=== PATIENT | male | born 1995 | race Caucasian/White ===

== ENCOUNTER 2017-09-11 00:33 | Emergency (ER) | payer BC ==
[~2017-09-11] VITALS: Ht 170.2 cm; Wt 87.7 kg
[~2017-09-11 00:33] MED LIST: ADDSR/15 PO; BUPR100T4 PO
[2017-09-11 00:43] VITALS: TEMP 37.1; Ht 170.2 cm; Wt 87.7 kg
[2017-09-11] MEDS ORDERED: IBUPROFEN 600 MG TAB PO STA (01:02)
[2017-09-11] MEDS ORDERED: AMPH20CA3 PO (01:05)
[2017-09-11] MEDS ORDERED: SERT-234 PO (01:06)
[2017-09-11 01:43] VITALS: BP 112/58; PULSE 70; O2SAT 98
--- NOTE | 2017-09-11 03:20 | EMERGENCY ROOM VISIT NOTE ---
ED Visit Note First contact with patient: 00:58 CHIEF COMPLAINT: Shoulder pain HISTORY OF PRESENT ILLNESS: This 22 yo patient presents to the emergency department complaining of pain in the left shoulder after throwing the trash away at work. Patient states is a work-related injury who works at [employer]. There is limitation of motion of the arm because of the pain. The pain is moderate, constant and increases with motion of the hand and arm. The patient states the pain is throbbing and 5/10. The patient has taken nothing for relief of the pain. No previous significant previous shoulder disease or injury. No numbness or tingling. no neck no back pain. No chest pain or shortness of breath. No abdominal pain or nausea/vomiting. No cough. REVIEW OF SYSTEMS: A 6 system review of systems was performed with positives and pertinent negatives in the HPI. ALLERGIES: None MEDICATIONS: Reviewed PMH: ADHD SOCIAL HISTORY: No drug use PHYSICAL EXAM: Vital Signs: Reviewed nurse's notes, vital signs stable. GENERAL : Pleasant male, in no acute distress, but appears to be in pain, well-developed , well-nourished. MUSCULOSKELETAL: There is no deformity in the contour of the left shoulder and there are no susie deformities noted. There is no sulcus sign. There is tenderness over the supraspinatus. The patient's range of motion is intact but painful. Supraspinatus strength 4/5. There is no clavicle tenderness. No tenderness of the humerus, elbow, wrist, or hand. Circuit Court Clerk strength 5/5. Radial pulse 2+. NECK: no tenderness to palpation over the cervical spine. HEART: Regular rate and rhythm without murmurs gallops or rubs. LUNGS: Clear to auscultation bilaterally without wheezes, rales or rhonchi. No accessory muscle use. No retractions. NEURO: The patient is alert and oriented to person, place, and time. Normal sensation to light and sharp touch. Capillary refill less than 2 seconds. EMERGENCY DEPARTMENT COURSE: I examined the patient. An X-ray of the left shoulder was reviewed by myself and my attending and shows no fracture. Patient was advised to stretch the area and take anti-inflammatories. He was advised to follow-up orthopedics symptoms persist or here in the ER sooner for severe pain, numbness, tingling, weakness, worsening signs or symptoms or as needed. 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 He was discharged home in stable condition. DIAGNOSIS: #1 Left shoulder sprain #2 work-related injury DISCHARGE INSTRUCTIONS & TREATMENT: As below Problem List Medical Problems: (1) Attention deficit hyperactivity disorder Status: Chronic Current/Historical Medications Scheduled Amphetamine-Dextroamphetamine 20MG (Adderall Xr 20MG), 20 MG PO BID Sertraline (Zoloft), 100 MG PO DAILY Allergies Coded Allergies: No Known Allergies (Verified , 09/11/17) Vital Signs Date Time Temp Pulse Resp B/P (MAP) Pulse Ox O2 Delivery O2 Flow Rate FiO2 09/11/17 01:43 70 18 112/58 98 Room Air 09/11/17 00:43 37.1 77 20 146/80 95 Room Air Medications Administered Medications (Trade) Dose Ordered Sig/Zoe Route Start Time Stop Time Status Last Admin Dose Admin Ibuprofen (Motrin Tab) 600 mg NOW STAT PO 09/11/17 01:02 09/11/17 01:03 DC 09/11/17 01:19 600 MG Departure Information Impression Primary Impression: Work related injury Additional Impression: Left shoulder strain Dispostion Home / Self-Care Condition GOOD Referrals Vadim Vigil MD Forms HOME CARE DOCUMENTATION FORM, IMPORTANT VISIT INFORMATION Patient Instructions [facility], ED Sprain Shoulder Additional Instructions Ibuprofen(Motrin, Advil) may be used for fever or pain. Use 600mg every six hours as needed. Take with food. Avoid using more than 2400mg in a 24 hour period. Do not use 2400mg per day for more than three consecutive days without physician direction. Prolonged inappropriate use can lead to stomach upset or ulcers. This medication can be taken if you need to drive, work, or perform activities which may be dangerous when taking narcotic pain medication. (AND/OR) Acetaminophen(Tylenol) may be used for fever or pain. Use 1000mg every six hours as needed. Avoid using more than 3000mg in a 24 hour period. This medication can be taken if you need to drive, work, or perform activities which may be dangerous when taking narcotic pain medication. Ice compresses for 20 minutes at a time four times daily for 2-3 days. Rest and elevate your injury. Continue current medications. Return to the ER immediately for any numbness, tingling, severe pain, extreme swelling in the extremity or as needed. Call Orthopedics in 3-5 days if symptoms persist to arrange follow up for your injury. Make sure this is approved through your work as this is a work-related injury. Problem Qualifiers
--- NOTE | 2017-09-11 06:45 | DIAGNOSTIC IMAGING REPORT ---
L SHOULDER MIN 2 VIEWS ROUTINE CLINICAL HISTORY: 22 years-old Male presenting with pain. TECHNIQUE: Internal rotation, external rotation, and Grashey views of the left shoulder were obtained. COMPARISON: 10/13/2010. FINDINGS: Glenohumeral and acromioclavicular joints congruent. No subluxation of the humeral head. No acute fracture or malalignment. No advanced degenerative change. Regional soft tissues normal. Visualized portion of the left hemithorax normal. IMPRESSION: No acute osseous injury of the left shoulder. Electronically signed by: Vadim Crane M.D. 09/11/2017 6:43 AM Dictated Date/Time: 09/11/2017 6:43 AM
== END 2017-09-11 01:44 | disposition home or self-care (01) ==
LOC: C.EDB 00:34 → C.EDA 01:44
DX: S46.912A Strain of unspecified muscle, fascia and tendon at shoulder and upper arm level, left arm, initial encounter (principal); X58.XXXA Exposure to other specified factors, initial encounter; Y92.89 Other specified places as the place of occurrence of the external cause; Y99.0 Civilian activity done for income or pay; F90.9 Attention-deficit hyperactivity disorder, unspecified type; Z79.899 Other long term (current) drug therapy

== ENCOUNTER 2021-12-04 21:33 | Inpatient (IN) ==
--- NOTE | 2021-12-04 21:59 | Emergency Department Note ---
Impression & Plan Suicidal ideation ADMIT ED Provider Note HPI: The patient is a 26-year-old male with history of depression, presents the emergency department with a chief complaint of suicidal ideations. Patient states over the past several months he has had multiple issues in his life that have been "stacking up" causing him to come to a "breaking point". Patient states that he was having thoughts of wanting to harm himself, he denies a specific plan to me. Patient states he has previously had a suicide attempt, states he was threatening to use a "weapon" against himself but was talked out of it over a year ago. Patient states he does have a history of psychiatric admission in the past when he was 16 years old for depression. On arrival here to the ED the patient is calm and cooperative, he is in no acute distress on my initial evaluation, denies any recent alcohol or drug use. States he is having thoughts of wanting to harm himself and feels he does need to be admitted. ROS: -Psychiatric: Depression, suicidal thoughts *10 point review systems was conducted and is otherwise negative unless stated above *Outpatient medications and allergy history reviewed PE: General: Alert, NAD HEENT: Normocephalic, atraumatic Eyes: Extraocular eye movement is intact, no scleral erythema Pulmonary: Clear to auscultation bilaterally, no wheezing Cardio: Regular rate and rhythm GI: Abdomen is soft, nontender : No suprapubic tenderness MSK: No evidence of trauma or malformation of the extremities, no edema Skin: No evidence of rash Neuro: Alert, no focal deficits Psychiatric: Cooperative Medical Decision Making: Patient presented to the emergency department with suicidal ideation, states that this is been ongoing for the past several days, states that he has been having increasing depression over the past several months. On arrival here to the ED he is calm and cooperative, he is here voluntarily, denies any active plan to harm himself but states he does feel that he needs to be admitted for further care. Lab work is generally unremarkable, patient does have a slight leukocytosis, unclear origin, denies any recent infectious signs or symptoms. COVID-19 testing is negative. Patient is afebrile. At this time I feel that he is medically clear for psychiatric evaluation. Patient was evaluated by case management, determined appropriate for 201 admission. Patient was accepted for admission at 3 S. for psychiatric care, I did sign the 201. Patient was admitted in stable condition. Diagnosis: 1. Depression 2. Suicidal thoughts Disposition: Admission to psychiatry under 201 Umesh Gordillo DO Emergency Medicine Past Med/Surg History Medical History (Updated 12/05/21 @ 00:28 by Umesh Gordillo DO) Patient denies significant medical history Social History (Updated 08/10/18 @ 20:46 by Chacho Doran PA-C) Smoking Status: Current some day smoker Tobacco Type: Cigarettes Preferred Language: Greenlandic Communication Ability: Effective Visual Impairment: No Limitations Hearing Ability: Normal Feels Safe at Home: Yes Allergies Allergies Allergy/AdvReac Type Severity Reaction Status Date / Time No Known Allergies Allergy Verified 03/09/19 23:37 Home Meds Home Medications Medication Instructions Recorded Confirmed Wellbutrin SR 150 mg PO DAILY 12/04/21 12/04/21 Results & Data (ED) Vital Signs Vital Signs - 24 hr 12/04/21 21:33 12/04/21 23:12 12/05/21 01:00 Temperature 36.5 C Temperature Source Temporal Artery Scan Pulse Rate 86 Pulse Rate [Radial] 75 Pulse Rhythm [Radial] Regular Pulse Strength [Radial] Normal Respiratory Rate 16 14 16 Respiratory Effort / Characteristics Non-Labored Respiratory Depth Normal Respiratory Pattern Regular Blood Pressure 142/97 H Blood Pressure Mean 112 Pulse Oximetry 98 Oxygen Delivery Method Room Air Room Air Sepsis Recent Fever Within 48 Hours No Sepsis New/Unexplained Change in Mental Status N/A Sepsis Action Taken by Nursing No Action Required Laboratory Data Result diagrams: 12/04/21 21:50 12/04/21 21:50 Lab Results 12/04/21 12/04/21 12/04/21 Range/Units 21:50 21:50 21:50 WBC 13.50 H (4.8-10.8) K/uL RBC 5.57 (4.7-6.1) M/uL Hgb 17.0 (14.0-18.0) g/dL Hct 47.9 (42-52) % MCV 86.0 (80-100) fL MCH 30.5 (25-34) pg MCHC 35.5 (32-36) g/dL RDW Std Deviation 39.1 (36.4-46.3) fL RDW Coeff of Mayank 12.3 (11.5-14.5) % Plt Count 280 (130-400) K/uL MPV 10.7 H (7.4-10.4) fL Immature Gran % (Auto) 0.4 % Neut % (Auto) 65.7 % Lymph % (Auto) 25.8 % [place] % (Auto) 6.0 % Eos % (Auto) 1.6 % Baso % (Auto) 0.5 % Neut # (Auto) 8.88 H (1.4-6.5) K/uL Lymph # (Auto) 3.48 H (1.2-3.4) K/uL [place] # (Auto) 0.81 H (0.11-0.59) K/uL Eos # (Auto) 0.21 (0-0.5) K/uL Baso # (Auto) 0.07 (0-0.2) K/uL Immature Gran # (Auto) 0.05 H (0.00-0.02) K/uL Sodium 139 (136-145) mmol/L Potassium 3.5 (3.5-5.1) mmol/L Chloride 105 (98-107) mmol/L Carbon Dioxide 26 (21-32) mmol/L Anion Gap 8 (3-11) BUN 15 (6-23) mg/dl Creatinine 1.12 (0.6-1.4) mg/dl Est Cr Clr Drug Dosing 114.6 ml/min Est GFR ( Amer) 105.3 ml/min Est GFR (Non-Af Amer) 90.8 ml/min BUN/Creatinine Ratio 13.4 (10-20) Glucose 94 (70-99(Fasting)) mg/dl Calcium 9.9 (8.5-10.1) mg/dl Total Bilirubin 0.5 (0.2-1.0) mg/dl AST 27 (13-39) U/L ALT 67 H (7-52) U/L Alkaline Phosphatase 67 (34-104) U/L Total Protein 7.7 (6.0-8.3) gm/dl Albumin 4.9 (3.4-5.0) gm/dl Globulin 2.8 (2.5-4.0) gm/dl Albumin/Globulin Ratio 1.8 (0.9-2) TSH 3.680 (0.300-4.500) uIu/ml Urine Color Urine Appearance (Clear) Urine pH (4.5-7.5) Ur Specific [place] (1.000-1.030) Urine Protein (Negative) Urine Glucose (UA) (Negative) Urine Ketones (Negative) Urine Blood (Negative) Urine Nitrite (Negative) Urine Bilirubin (Negative) Urine Urobilinogen (Negative) Ur Leukocyte Esterase (Negative) Salicylates (3.0-30) mg/dl Urine Opiates Screen (Neg) Ur Methadone, Qual (Neg) Acetaminophen (10-30) ug/ml Urine Barbiturates (Neg) Ur Phencyclidine (PCP) (Neg) U Amphetamin/Meth Scrn (Neg) MDMA (Ecstasy) Screen (Neg) U Benzodiazepines Scrn (Neg) Ur Cocaine Metabolite (Neg) U Marijuana (THC) Screen (Neg) Ethyl Alcohol mg/dL (<10.0) mg/dl SARS-CoV-2, RNA, NAAT (NEGATIVE) 12/04/21 12/04/21 12/04/21 Range/Units 21:50 21:50 21:50 WBC (4.8-10.8) K/uL RBC (4.7-6.1) M/uL Hgb (14.0-18.0) g/dL Hct (42-52) % MCV (80-100) fL MCH (25-34) pg MCHC (32-36) g/dL RDW Std Deviation (36.4-46.3) fL RDW Coeff of Mayank (11.5-14.5) % Plt Count (130-400) K/uL MPV (7.4-10.4) fL Immature Gran % (Auto) % Neut % (Auto) % Lymph % (Auto) % [place] % (Auto) % Eos % (Auto) % Baso % (Auto) % Neut # (Auto) (1.4-6.5) K/uL Lymph # (Auto) (1.2-3.4) K/uL [place] # (Auto) (0.11-0.59) K/uL Eos # (Auto) (0-0.5) K/uL Baso # (Auto) (0-0.2) K/uL Immature Gran # (Auto) (0.00-0.02) K/uL Sodium (136-145) mmol/L Potassium (3.5-5.1) mmol/L Chloride (98-107) mmol/L Carbon Dioxide (21-32) mmol/L Anion Gap (3-11) BUN (6-23) mg/dl Creatinine (0.6-1.4) mg/dl Est Cr Clr Drug Dosing ml/min Est GFR ( Amer) ml/min Est GFR (Non-Af Amer) ml/min BUN/Creatinine Ratio (10-20) Glucose (70-99(Fasting)) mg/dl Calcium (8.5-10.1) mg/dl Total Bilirubin (0.2-1.0) mg/dl AST (13-39) U/L ALT (7-52) U/L Alkaline Phosphatase (34-104) U/L Total Protein (6.0-8.3) gm/dl Albumin (3.4-5.0) gm/dl Globulin (2.5-4.0) gm/dl Albumin/Globulin Ratio (0.9-2) TSH (0.300-4.500) uIu/ml Urine Color Urine Appearance (Clear) Urine pH (4.5-7.5) Ur Specific [place] (1.000-1.030) Urine Protein (Negative) Urine Glucose (UA) (Negative) Urine Ketones (Negative) Urine Blood (Negative) Urine Nitrite (Negative) Urine Bilirubin (Negative) Urine Urobilinogen (Negative) Ur Leukocyte Esterase (Negative) Salicylates < 3.0 L (3.0-30) mg/dl Urine Opiates Screen (Neg) Ur Methadone, Qual (Neg) Acetaminophen < 3 L (10-30) ug/ml Urine Barbiturates (Neg) Ur Phencyclidine (PCP) (Neg) U Amphetamin/Meth Scrn (Neg) MDMA (Ecstasy) Screen (Neg) U Benzodiazepines Scrn (Neg) Ur Cocaine Metabolite (Neg) U Marijuana (THC) Screen (Neg) Ethyl Alcohol mg/dL < 10.0 (<10.0) mg/dl SARS-CoV-2, RNA, NAAT NEGATIVE (NEGATIVE) 12/04/21 12/04/21 Range/Units 21:57 21:57 WBC (4.8-10.8) K/uL RBC (4.7-6.1) M/uL Hgb (14.0-18.0) g/dL Hct (42-52) % MCV (80-100) fL MCH (25-34) pg MCHC (32-36) g/dL RDW Std Deviation (36.4-46.3) fL RDW Coeff of Myaank (11.5-14.5) % Plt Count (130-400) K/uL MPV (7.4-10.4) fL Immature Gran % (Auto) % Neut % (Auto) % Lymph % (Auto) % [place] % (Auto) % Eos % (Auto) % Baso % (Auto) % Neut # (Auto) (1.4-6.5) K/uL Lymph # (Auto) (1.2-3.4) K/uL [place] # (Auto) (0.11-0.59) K/uL Eos # (Auto) (0-0.5) K/uL Baso # (Auto) (0-0.2) K/uL Immature Gran # (Auto) (0.00-0.02) K/uL Sodium (136-145) mmol/L Potassium (3.5-5.1) mmol/L Chloride (98-107) mmol/L Carbon Dioxide (21-32) mmol/L Anion Gap (3-11) BUN (6-23) mg/dl Creatinine (0.6-1.4) mg/dl Est Cr Clr Drug Dosing ml/min Est GFR ( Amer) ml/min Est GFR (Non-Af Amer) ml/min BUN/Creatinine Ratio (10-20) Glucose (70-99(Fasting)) mg/dl Calcium (8.5-10.1) mg/dl Total Bilirubin (0.2-1.0) mg/dl AST (13-39) U/L ALT (7-52) U/L Alkaline Phosphatase (34-104) U/L Total Protein (6.0-8.3) gm/dl Albumin (3.4-5.0) gm/dl Globulin (2.5-4.0) gm/dl Albumin/Globulin Ratio (0.9-2) TSH (0.300-4.500) uIu/ml Urine Color Yellow Urine Appearance Clear (Clear) Urine pH 6.5 (4.5-7.5) Ur Specific [place] 1.023 (1.000-1.030) Urine Protein Negative (Negative) Urine Glucose (UA) Negative (Negative) Urine Ketones Negative (Negative) Urine Blood Negative (Negative) Urine Nitrite Negative (Negative) Urine Bilirubin Negative (Negative) Urine Urobilinogen Negative (Negative) Ur Leukocyte Esterase Negative (Negative) Salicylates (3.0-30) mg/dl Urine Opiates Screen Neg (Neg) Ur Methadone, Qual Neg (Neg) Acetaminophen (10-30) ug/ml Urine Barbiturates Neg (Neg) Ur Phencyclidine (PCP) Neg (Neg) U Amphetamin/Meth Scrn Neg (Neg) MDMA (Ecstasy) Screen Neg (Neg) U Benzodiazepines Scrn Neg (Neg) Ur Cocaine Metabolite Neg (Neg) U Marijuana (THC) Screen Neg (Neg) Ethyl Alcohol mg/dL (<10.0) mg/dl SARS-CoV-2, RNA, NAAT (NEGATIVE) Discharge Plan Visit Data Chief Complaint: Mental Health Evaluation Stated Complaint: FEELING SUICIDAL THE PAST FEW DAYS ED Provider: Umesh Gordillo Discharge Problem: Suicidal ideation Forms Stand Alone Forms: My [facility], Suicide Prevention Resources Prescriptions Prescriptions: No Action Wellbutrin SR 150 mg PO DAILY RF: 0 Referrals Referrals: Arnulfo Adair MD [Primary Care Provider] -
[2021-12-04 22:09] LABS: Appearance Urine Clear (Clear); Bilirubin Urine Negative (Negative); Blood Urine Negative (Negative); Color Urine Yellow; Glucose Urine UA Negative (Negative); Ketones Urine Negative (Negative); Leukocyte Esterase Urine Negative (Negative); Nitrite Urine Negative (Negative); Protein Urine Negative (Negative); Specific Gravity Urine 1.023 (1.000-1.030); Urobilinogen Urine Negative (Negative); pH Urine 6.5 (4.5-7.5)
[2021-12-04 22:10] LABS: Basophils # (auto) 0.07 K/uL (0-0.2); Basophils % (auto) 0.5 %; Eosinophils # (auto) 0.21 K/uL (0-0.5); Eosinophils % (auto) 1.6 %; Hematocrit (blood only) 47.9 % (42-52); Immature Granulocytes # (auto) 0.05 K/uL (0.00-0.02); Immature Granulocytes % (auto) 0.4 %; Lymphocytes # (auto) 3.48 K/uL (1.2-3.4); Lymphocytes % (auto) 25.8 %; Mean Corpuscular Hemoglobin 30.5 pg (25-34); Mean Corpuscular Hgb Conc 35.5 g/dL (32-36); Mean Platelet Volume 10.7 fL (7.4-10.4); Monocytes # (auto) 0.81 K/uL (0.11-0.59); Neutrophils # (auto) 8.88 K/uL (1.4-6.5); Neutrophils % (auto) 65.7 %; Platelet Count 280 K/uL (130-400); RDW Coefficient of Variation 12.3 % (11.5-14.5); RDW Standard Deviation 39.1 fL (36.4-46.3); Red Blood Count 5.57 M/uL (4.7-6.1)
[2021-12-04 22:29] LABS: Albumin Globulin Ratio 1.8 (0.9-2); Albumin Level 4.9 gm/dl (3.4-5.0); BUN Creatinine Ratio 13.4 (10-20); Bilirubin,Total 0.5 mg/dl (0.2-1.0); Calcium 9.9 mg/dl (8.5-10.1); Creatinine Clr Calc Pharmacy 114.6 ml/min; Est GFR (African American) 105.3 ml/min; Est GFR (Non-African American) 90.8 ml/min; Globulin 2.8 gm/dl (2.5-4.0); Potassium 3.5 mmol/L (3.5-5.1); Total Protein 7.7 gm/dl (6.0-8.3)
[2021-12-04 22:30] LABS: Amphetamines+Metham, Urine Neg (Neg); Barbiturates, Urine Neg (Neg); Benzodiazepine, Urine Neg (Neg); Cocaine, Urine Neg (Neg); MDMA (Ecstacy), Urine Neg (Neg); Methadone, Urine Neg (Neg); Opiate, Urine Neg (Neg); Phencyclidine, Urine Neg (Neg)
[2021-12-04 22:37] LABS: Acetaminophen < 3 ug/ml (10-30); Salicylate < 3.0 mg/dl (3.0-30)
[2021-12-05] MEDS ORDERED: MAGNESIUM HYDROXIDE SUSP 30 ML UDC PO PRN (01:18)
[2021-12-05] MEDS ORDERED: hydrOXYzine HCl 25 MG TAB PO PRN ×2 (01:18)
[2021-12-05] MEDS ORDERED: BISMUTH SUBSALICYLATE LIQD 236 ML PO PRN (01:18)
[2021-12-05] MEDS ORDERED: SODIUM CHLORIDE 0.65% NA SOLN 45 ML (OCEAN) PRN (01:18)
[2021-12-05] MEDS ORDERED: ALUMINUM/MAGNESIUM SUSP 30 ML UDC PO PRN (01:18)
[2021-12-05] MEDS ORDERED: ACETAMINOPHEN 325 MG TAB PO PRN (01:18)
[2021-12-05] MEDS ORDERED: buPROPion SR 150 MG TABCR PO SCH (09:00)
--- NOTE | 2021-12-05 10:09 | History & Physical ---
Date of Service December 05, 2021 Impression / Recommendations Impression The patient is a 26 year old with a history of depression who was admitted for worsening depression, anxiety and persistent and intensifying SI. Diagnostically consistent with MDD, recurrent with anxious distress and social anxiety and alcohol use disorder. The patient is deemed unstable and requires psychiatric hospitalization for diagnostic clarification, safety and stabilization, medication management and development of further coping skills. Discussed medication treatment options in detail. He would like to transition to Wellbutrin XL and then consider augmentation with fluoxetine. Discussed risks, benefits and alternatives including but not limited to cardiac effects, sexual side effects, GI issues, GOMEZ, counseled on black box warning of potential for emergence of or increased SI and need to let staff know should this occur or should they feel unsafe. Also discussed importance of seeking emergency care following discharge if this side effect occurs in the future. The patient's audit score, use history suggests problematic substance use. Brief intervention was offered and accepted. Intervention was greater than 5 minutes in length and included assessing readiness to quit, advice on how to reduce or abstain and to set a specific goal for this hospitalization. sand worker will also assist in anticipating barriers to reducing or abstaining from substance use and in problem-solving for solutions to those problems while arranging for referral to appropriate treatment. The patient is in contemplative stage with regards to transtheoretical model of change. The patient is advised to decrease consumption due to depressant effects and risk of interaction with prescription medications. The patient agreed to reduce his use and will be provided with recovery materials to continue to educa te self on how to cope with their condition without using substances. Not interested in MAT at this point. (1) Major depressive disorder, recurrent episode, severe with anxious distress: (2) Social anxiety disorder: (3) Alcohol use disorder: (4) Suicidal ideation: 12/05/21: The patient was admitted to the [facility] ([facility] health unit) on q15 min checks (behavioral with suicide precautions) for safety. The patient will participate in group, recreational, and milieu therapies and will be offered additional individual and family sessions as clinically appropriate. -hydroxyzine 25mg qhs -Switch to Wellbutrin XL 150mg qd and if tolerated will then titrate to 300mg qd -declines nicotine replacement at this point -may consider further augmentation with fluoxetine for anxiety and depression if needed Inventory Assets Strengths: supportive family, employed, help seeking Needs: outpatient providers, medication adjustment, additional coping skills Risk Factors Assessment Acute risk is high given worsening depression and SI, history of near attempt, access to guns. Chronic risk is low to moderate given history of depression and suicidal ideation with plan and intent but also with many protective factors. Most significant modifiable risk factors are removing guns from the home which counseling was provided about he agrees to have friend remove them and treating major depression. Male: Yes : Yes Do You Have Access To A Gun?: Yes (willing to have friend remove them from the home ) Health Problems: No Mental Health Diagnoses: Yes Substance Use Disorders: Yes Previous Attempt: No Family History of Suicide: Yes Previous Psychiatric Hospitalization: Yes Hopelessness: Yes Smoker: Yes Protective Factors Assessment Employed: Yes ([employer]) Stable Relationships: Yes Supportive Family: Yes Good Rapport with Provider: Yes Psychiatric History Identifying Data DUANE CARTER is a 26-year-old man who currently lives in [place] with his parents, has a history of depression, and was admitted on 12/05/21 01:18 on a 201 voluntary commitment for worsening depression and SI. Chief Complaint "Everything was building up and I lost my final support system". History of Present Illness Duane presents for psychiatric hospitalization for worsening depression and intensifying SI in the context of multiple psychosocial stressors including his father having health issues, recent breakup with girlfriend who he identified as his main support, isolating from family and work has been more intense. Since 12/02/21, his depression has further escalated with persistent SI to the point that he felt unable to remain safe outside of a hospital setting. The SI started while he was intoxicated and then even after "I sobered out" they never left. He had thoughts of crashing his car on Sunday and Sunday but a friend recommended he come to the hospital and he decided "I should give it one more chance". Previously he had a near suicide attempt about one year ago with intent to use a gun to shoot himself but had a friend on the phone who talked him out of it. Currently he has guns in his home though states he lost the rachel to the cabinet where they are secured. Notes that he has a lot of grief that still impacts him every day since May 2020 when he had a romantic breakup after a 2.5 year on and off relationship and subsequent loss of his apartment and "everything I had worked for, all my independence". He endorses depression symptoms which occur episodic with re-emergence in early October 2021. Current symptoms of depression including intense sadness, decrease motivation, low energy, decreased sleep, decreased appetite as well as anxiety and SI. He also endorses lifelong history of social anxiety. Has panic attacks a few times per year. He is currently taking Wellbutrin SR 150mg qAM prescribed by his PCP. He's been "on and off" it for the last 1.5 years. He notes he feels better and stops it but then depression often restarts. Has been on Wellbutrin again since October and it "does help but to an extent". He wishes it was helping more with irritability symptoms. Psychiatric ROS notable for: denial of joaquina, denial of psychosis, hx self-harm via cutting in childhood none in last 10 years, denial of OCD, denial of eating disorder, denial of PTSD. Past Psychiatric History Current Psychiatric Diagnosis: Depression Outpatient Services: teletherapy with Barbara [facility], first session last week Previous Psych Admissions: [facility] at age 16 for depression Do You Have Access To A Gun?: Yes (willing to have friend remove them from the home ) History of Previous Suicide Attempt: No (SI with rehearsal behaviors) Describe Attempts in the Past: had plan to shoot self 1 year ago and "was talked out of it" Past Medication Trials: zoloft ("I hated it, if you miss a dose you pay the ultimate garza", was on for 3-4 months), intuniv (made very sleepy) Past Head Trauma/Neuro History History of Concussion/Seizure: No Allergies Allergy/AdvReac Type Severity Reaction Status Date / Time No Known Allergies Allergy Verified 03/09/19 23:37 Home Medications Medication Instructions Recorded Confirmed Type Wellbutrin SR 150 mg PO DAILY 12/04/21 12/04/21 History Family History Family History of: Depression (paternal side of the family ), Alcoholism/Drug Abuse (PGF alcohol use disorder ) and Suicide Completion (maternal great uncle) Alcohol History Hx of Alcohol Use Over the Past 12 Months: Yes AUDIT Total Score: 11 With worsening depression drinking has increased with drinks daily, about 3-4 times per day, hard liquor or beers (on average 4 mixed drinks or 4 beers per day); no hx DUI; no hx blackouts, no hx withdrawal. Likes that alcohol "calms me down", nothing that he doesn't like about it. He would like to cut down on his use "so it doesn't become a problem". Smoking Use Have You Smoked or Used Tobacco Products in the Last 30 Days: Yes tobacco type: cigarettes Smoking Status: Light tobacco smoker Smoking packs per day: 0.25 Substance History Hx of Prescription Med Misuse Over the Past 12 Months: No Hx of Over the Counter Med Misuse Over the Past 12 Months: No Hx of Inhalent Misuse Over the Past 12 Months: No Hx of Organic Substance Use Over the Past 12 Months: No Hx of Illegal Substances/Street Drug Use Over Past 12 Months: No Problems as a Result of Past Substance Use: None Identified cannabis use once every few months socially Personal History Living Arrangements: Home (with his parents) Childhood: Grew up in [facility] Highest Grade Completed: High School Graduate 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; 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 ) Marital Status: Single Number Of Children: 0 Beliefs That Will Affect Care: None Current Legal Problems: No Hx Legal Problems: No Hx Traumatic Life Events: No Patient History Medical History Patient denies significant medical history Social History Smoking Status: Light tobacco smoker Tobacco Type: Cigarettes Preferred Language: Mozambican Communication Ability: Effective Visual Impairment: No Limitations Hearing Ability: Normal Sleever Required: No Beliefs That Will Affect Care: None Feels Safe at Home: Yes Assistive Devices: Contacts Review of Systems Review of Systems: All systems reviewed & are unremarkable except as noted in HPI & below Physical Exam Psychiatric: Orientation: alert and oriented x 3 Apperance: appropriately dressed and appropriately groomed Eye Contact: good eye contact Motor Behavior: no abnormal motor movements Speech: normal rate/rhythm/volume of speech Affect: + depressed affect and + anxious affect Mood: + depressed mood and + anxious mood Thought Process: goal directed thought process Thought Content: reality based without delusions Suicidal Thoughts: denies suicidal plan and denies suicidal intent; + reports suicidal thoughts Homicidal Thoughts: denies homicidal thoughts Hallucinations: no auditory hallucinations and no visual hallucinations Cognition: recent memory grossly intact, remote memory grossly intact, attention grossly intact and language grossly intact Estimated Intelligence: consistent with education level Insight: + fair insight Judgement: + fair judgement Vital Signs (Past 24 Hours): Last Vital Signs Temp 36.2 C L 12/05/21 06:39 Pulse 71 12/05/21 06:42 Resp 16 12/05/21 06:39 BP 117/77 12/05/21 06:42 Pulse Ox 98 12/04/21 21:33 Exam Statement: A physical exam was performed in the ED by Dr. Gordillo for the purposes of medical clearance. I accept that physical as correct and adequate for the purposes of the inpatient physical exam. Results & Data ([facility]) Laboratory Results Laboratory Results - last 24 hr 12/04/21 12/04/21 12/04/21 21:50 21:50 21:50 WBC 13.50 H RBC 5.57 Hgb 17.0 Hct 47.9 MCV 86.0 MCH 30.5 MCHC 35.5 RDW Std Deviation 39.1 RDW Coeff of Mayank 12.3 Plt Count 280 MPV 10.7 H Immature Gran % (Auto) 0.4 Neut % (Auto) 65.7 Lymph % (Auto) 25.8 [place] % (Auto) 6.0 Eos % (Auto) 1.6 Baso % (Auto) 0.5 Neut # (Auto) 8.88 H Lymph # (Auto) 3.48 H [place] # (Auto) 0.81 H Eos # (Auto) 0.21 Baso # (Auto) 0.07 Immature Gran # (Auto) 0.05 H Sodium 139 Potassium 3.5 Chloride 105 Carbon Dioxide 26 Anion Gap 8 BUN 15 Creatinine 1.12 Est Cr Clr Drug Dosing 114.6 Est GFR ( Amer) 105.3 Est GFR (Non-Af Amer) 90.8 BUN/Creatinine Ratio 13.4 Glucose 94 Calcium 9.9 Total Bilirubin 0.5 AST 27 ALT 67 H Alkaline Phosphatase 67 Total Protein 7.7 Albumin 4.9 Globulin 2.8 Albumin/Globulin Ratio 1.8 TSH 3.680 Urine Color Urine Appearance Urine pH Ur Specific [place] Urine Protein Urine Glucose (UA) Urine Ketones Urine Blood Urine Nitrite Urine Bilirubin Urine Urobilinogen Ur Leukocyte Esterase Salicylates Urine Opiates Screen Ur Methadone, Qual Acetaminophen Urine Barbiturates Ur Phencyclidine (PCP) U Amphetamin/Meth Scrn MDMA (Ecstasy) Screen U Benzodiazepines Scrn Ur Cocaine Metabolite U Marijuana (THC) Screen Ethyl Alcohol mg/dL SARS-CoV-2, RNA, NAAT 12/04/21 12/04/21 12/04/21 21:50 21:50 21:50 WBC RBC Hgb Hct MCV MCH MCHC RDW Std Deviation RDW Coeff of Mayank Plt Count MPV Immature Gran % (Auto) Neut % (Auto) Lymph % (Auto) [place] % (Auto) Eos % (Auto) Baso % (Auto) Neut # (Auto) Lymph # (Auto) [place] # (Auto) Eos # (Auto) Baso # (Auto) Immature Gran # (Auto) Sodium Potassium Chloride Carbon Dioxide Anion Gap BUN Creatinine Est Cr Clr Drug Dosing Est GFR ( Amer) Est GFR (Non-Af Amer) BUN/Creatinine Ratio Glucose Calcium Total Bilirubin AST ALT Alkaline Phosphatase Total Protein Albumin Globulin Albumin/Globulin Ratio TSH Urine Color Urine Appearance Urine pH Ur Specific [place] Urine Protein Urine Glucose (UA) Urine Ketones Urine Blood Urine Nitrite Urine Bilirubin Urine Urobilinogen Ur Leukocyte Esterase Salicylates < 3.0 L Urine Opiates Screen Ur Methadone, Qual Acetaminophen < 3 L Urine Barbiturates Ur Phencyclidine (PCP) U Amphetamin/Meth Scrn MDMA (Ecstasy) Screen U Benzodiazepines Scrn Ur Cocaine Metabolite U Marijuana (THC) Screen Ethyl Alcohol mg/dL < 10.0 SARS-CoV-2, RNA, NAAT NEGATIVE 12/04/21 12/04/21 21:57 21:57 WBC RBC Hgb Hct MCV MCH MCHC RDW Std Deviation RDW Coeff of Mayank Plt Count MPV Immature Gran % (Auto) Neut % (Auto) Lymph % (Auto) [place] % (Auto) Eos % (Auto) Baso % (Auto) Neut # (Auto) Lymph # (Auto) [place] # (Auto) Eos # (Auto) Baso # (Auto) Immature Gran # (Auto) Sodium Potassium Chloride Carbon Dioxide Anion Gap BUN Creatinine Est Cr Clr Drug Dosing Est GFR ( Amer) Est GFR (Non-Af Amer) BUN/Creatinine Ratio Glucose Calcium Total Bilirubin AST ALT Alkaline Phosphatase Total Protein Albumin Globulin Albumin/Globulin Ratio TSH Urine Color Yellow Urine Appearance Clear Urine pH 6.5 Ur Specific [place] 1.023 Urine Protein Negative Urine Glucose (UA) Negative Urine Ketones Negative Urine Blood Negative Urine Nitrite Negative Urine Bilirubin Negative Urine Urobilinogen Negative Ur Leukocyte Esterase Negative Salicylates Urine Opiates Screen Neg Ur Methadone, Qual Neg Acetaminophen Urine Barbiturates Neg Ur Phencyclidine (PCP) Neg U Amphetamin/Meth Scrn Neg MDMA (Ecstasy) Screen Neg U Benzodiazepines Scrn Neg Ur Cocaine Metabolite Neg U Marijuana (THC) Screen Neg Ethyl Alcohol mg/dL SARS-CoV-2, RNA, NAAT Current Inpatient Medications Current Inpatient Medications: Current Inpatient Medications Acetaminophen (Acetaminophen 325 Mg Tab) 650 mg PO Q4H PRN PRN Reason: Headache or Minor Fever Stop: 01/04/22 01:17 Al Hydrox/Mg Hydrox/Simethicone (Aluminum/Magnesium Susp 30 Ml Udc) 30 ml PO Q4H PRN PRN Reason: GI Upset Stop: 01/04/22 01:17 Bismuth Subsalicylate (Bismuth Subsalicylate Liqd 236 Ml) 15 ml PO PRN PRN PRN Reason: Loose Stool Stop: 01/04/22 01:17 Bupropion HCl (Bupropion Sr 150 Mg Tabcr) 150 mg PO BID NIKKI Stop: 01/04/22 08:59 Last Admin: 12/05/21 09:35 Dose: 150 mg Documented by: Hydroxyzine HCl (Hydroxyzine Hcl 25 Mg Tab) 50 mg PO HSZ PRN PRN Reason: Insomnia Stop: 01/04/22 01:17 Hydroxyzine HCl (Hydroxyzine Hcl 25 Mg Tab) 25 mg PO Q4H PRN PRN Reason: Anxiety Stop: 01/04/22 01:17 Magnesium Hydroxide (Magnesium Hydroxide Susp 30 Ml Udc) 30 ml PO DAILY PRN PRN Reason: Constipation Stop: 01/04/22 01:17 Sodium Chloride (Sodium Chloride 0.65% Na Soln 45 Ml ([place])) 1 - 2 sprays NA PRN PRN PRN Reason: Nasal Dryness/Congestion Stop: 01/04/22 01:17
[2021-12-05] MEDS: hydrOXYzine HCl 25 MG TAB PO SCH (22:51)
[2021-12-06] MEDS: buPROPion XL 300 MG TABCR PO SCH (08:37)
--- NOTE | 2021-12-06 08:59 | Psychiatric Progress Note ---
Date of Service December 06, 2021 Impression / Recommendations Impression The patient is a 26 year old with a history of depression who was admitted for worsening depression, anxiety and persistent and intensifying SI. Diagnostically consistent with MDD, recurrent with anxious distress and social anxiety and alcohol use disorder. The patient is deemed unstable and requires psychiatric hospitalization for diagnostic clarification, safety and stabilization, medication management and development of further coping skills. 12/06/21: Tolerating increased Wellbutrin XL 300mg well, showing some mood improvements, no SI today. (1) Major depressive disorder, recurrent episode, severe with anxious distress: (2) Social anxiety disorder: (3) Alcohol use disorder: (4) Suicidal ideation: 12/06/21: Continue Wellbutrin XL 300mg qd. Family meeting scheduled. 12/05/21: The patient was admitted to the [facility] ([facility] health unit) on q15 min checks (behavioral with suicide precautions) for safety. The patient will participate in group, recreational, and milieu therapies and will be offered additional individual and family sessions as clinically appropriate. -hydroxyzine 25mg qhs -Increase Wellbutrin XL 150mg qd to 300mg qd -declines nicotine replacement at this point -may consider further augmentation with fluoxetine for anxiety and depression if needed Inventory Assets Strengths: supportive family, employed, help seeking Needs: outpatient providers, medication adjustment, additional coping skills Risk Factors Assessment Male: Yes : Yes Do You Have Access To A Gun?: Yes (Secured in home, agreeable to have them removed) Health Problems: No Mental Health Diagnoses: Yes Substance Use Disorders: Yes Previous Attempt: No Family History of Suicide: Yes Previous Psychiatric Hospitalization: Yes Hopelessness: Yes Smoker: Yes Protective Factors Assessment Employed: Yes ([employer] - [employer]) Stable Relationships: Yes Supportive Family: Yes Good Rapport with Provider: Yes Interval History Identifying Information CHAUNCEY CARTER is a 26-year-old man who currently lives in [place] with his parents, has a history of depression, and was admitted on 12/05/21 01:18 on a 201 voluntary commitment for worsening depression and SI. Chief Complaint "It's definitely helping". Review of Systems Sleep Information Total Hours of Sleep: 6.5 Meal Information Percent Meal Consumed - Breakfast: 75 Percent Meal Consumed - Lunch: 100 Percent Meal Consumed - Dinner: 100 Subjective Subjective Patient was seen & assessed and interval progress reviewed with treatment team nursing and social work. Attended groups. Tolerating increase in WEllbutrin without any side effects, he feels he's already noticing some improvements in his mood symptoms "it's definitely helping". Denies SI. Family meeting scheduled. Physical Exam Psychiatric Orientation: alert and oriented x 3 Apperance: appropriately dressed and appropriately groomed Eye Contact: good eye contact Motor Behavior: no abnormal motor movements Speech: normal rate/rhythm/volume of speech Affect: + depressed affect Mood: + depressed mood Thought Process: goal directed thought process Thought Content: reality based without delusions Suicidal Thoughts: denies suicidal thoughts, denies suicidal plan and denies suicidal intent Homicidal Thoughts: denies homicidal thoughts Hallucinations: no auditory hallucinations and no visual hallucinations Cognition: recent memory grossly intact, remote memory grossly intact, attention grossly intact and language grossly intact Estimated Intelligence: consistent with education level Insight: + fair insight Judgement: + fair judgement Vital Signs (Past 24 Hours) Last Vital Signs Temp 36.5 C 12/06/21 06:00 Pulse 67 12/06/21 06:00 Resp 16 12/06/21 06:00 BP 116/78 12/06/21 06:00 Pulse Ox 98 12/04/21 21:33 Results & Data ([facility]) Current Inpatient Medications Current Inpatient Medications: Current Inpatient Medications Acetaminophen (Acetaminophen 325 Mg Tab) 650 mg PO Q4H PRN PRN Reason: Headache or Minor Fever Stop: 01/04/22 01:17 Al Hydrox/Mg Hydrox/Simethicone (Aluminum/Magnesium Susp 30 Ml Udc) 30 ml PO Q4H PRN PRN Reason: GI Upset Stop: 01/04/22 01:17 Bismuth Subsalicylate (Bismuth Subsalicylate Liqd 236 Ml) 15 ml PO PRN PRN PRN Reason: Loose Stool Stop: 01/04/22 01:17 Bupropion HCl (Bupropion Xl 300 Mg Tabcr) 300 mg PO QAM NIKKI Stop: 01/05/22 08:59 Last Admin: 12/06/21 08:37 Dose: 300 mg Documented by: Hydroxyzine HCl (Hydroxyzine Hcl 25 Mg Tab) 50 mg PO HSZ PRN PRN Reason: Insomnia Stop: 01/04/22 01:17 Hydroxyzine HCl (Hydroxyzine Hcl 25 Mg Tab) 25 mg PO Q4H PRN PRN Reason: Anxiety Stop: 01/04/22 01:17 Hydroxyzine HCl (Hydroxyzine Hcl 25 Mg Tab) 25 mg PO HS NIKKI Stop: 01/04/22 21:59 Last Admin: 12/05/21 22:51 Dose: 25 mg Documented by: Magnesium Hydroxide (Magnesium Hydroxide Susp 30 Ml Udc) 30 ml PO DAILY PRN PRN Reason: Constipation Stop: 01/04/22 01:17 Sodium Chloride (Sodium Chloride 0.65% Na Soln 45 Ml ([place])) 1 - 2 sprays NA PRN PRN PRN Reason: Nasal Dryness/Congestion Stop: 01/04/22 01:17 Mental Health & Subst Abuse Tx Therapist Name of Therapist: [facility] (online) - Rosita Edwards [employer] Maintenance Manager Name of 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 Adair
[2021-12-06] MEDS ORDERED: buPROPion XL 150 MG TABCR PO SCH (09:00)
[2021-12-06] MEDS: hydrOXYzine HCl 25 MG TAB PO SCH (21:16)
--- NOTE | 2021-12-07 09:03 | Psychiatric Progress Note ---
Date of Service December 07, 2021 Impression / Recommendations Impression The patient is a 26 year old with a history of depression who was admitted for worsening depression, anxiety and persistent and intensifying SI. Diagnostically consistent with MDD, recurrent with anxious distress and social anxiety and alcohol use disorder. The patient is deemed unstable and requires psychiatric hospitalization for diagnostic clarification, safety and stabilization, medication management and development of further coping skills. 12/07/21: Gradually improving, brightening of affect, tolerating Wellbutrin titration but still with periods of hopelessness and doubts about his ability to remain safe outside of the hospital. (1) Major depressive disorder, recurrent episode, severe with anxious distress: (2) Social anxiety disorder: (3) Alcohol use disorder: (4) Suicidal ideation: 12/07/21: Continue with Wellbutrin. 12/06/21: Continue Wellbutrin XL 300mg qd. Family meeting scheduled. 12/05/21: The patient was admitted to the [facility] ([facility]) on q15 min checks (behavioral with suicide precautions) for safety. The patient will participate in group, recreational, and milieu therapies and will be offered additional individual and family sessions as clinically appropriate. -hydroxyzine 25mg qhs -Increase Wellbutrin XL 150mg qd to 300mg qd -declines nicotine replacement at this point -may consider further augmentation with fluoxetine for anxiety and depression if needed Inventory Assets Strengths: supportive family, employed, help seeking Needs: outpatient providers, medication adjustment, additional coping skills Risk Factors Assessment Male: Yes : Yes Do You Have Access To A Gun?: Yes (Secured in home, agreeable to have them removed) Health Problems: No Mental Health Diagnoses: Yes Substance Use Disorders: Yes Previous Attempt: No Family History of Suicide: Yes Previous Psychiatric Hospitalization: Yes Hopelessness: Yes Smoker: Yes Protective Factors Assessment Employed: Yes ([employer]) Stable Relationships: Yes Supportive Family: Yes Good Rapport with Provider: Yes Interval History Identifying Information CHAUNCEY CARTER is a 26-year-old man who currently lives in [place] with his parents, has a history of depression, and was admitted on 12/05/21 01:18 on a 201 voluntary commitment for worsening depression and SI. Chief Complaint "I had some thoughts of doubt today". Review of Systems Sleep Information Total Hours of Sleep: 8 Meal Information Percent Meal Consumed - Breakfast: 100 Percent Meal Consumed - Lunch: 100 Percent Meal Consumed - Dinner: 100 Subjective Subjective Patient was seen & assessed and interval progress reviewed with treatment team nursing and social work. Attended groups, discussing future-oriented plans. States his mood is improving here and denies SI though remains very worried about his safety outside of the hospital and notes he has been having "a lot of doubts" about if he'll be able to manage things on his own and some hopelessness that he'll get worse again due to the depression. Discussed ways to challenge these unhelpful thoughts. He likes the Wellbutrin and denies any side effects though did have some insomnia last night. has been taking vistaril and finds it helpful for sleep. Physical Exam Psychiatric Orientation: alert and oriented x 3 Apperance: appropriately dressed and appropriately groomed Eye Contact: good eye contact Motor Behavior: no abnormal motor movements Speech: normal rate/rhythm/volume of speech Affect: + depressed affect Mood: + depressed mood and + anxious mood Thought Process: goal directed thought process Thought Content: reality based without delusions Suicidal Thoughts: denies suicidal thoughts Homicidal Thoughts: denies homicidal thoughts Hallucinations: no auditory hallucinations and no visual hallucinations Cognition: recent memory grossly intact, remote memory grossly intact, attention grossly intact and language grossly intact Estimated Intelligence: consistent with education level Insight: + fair insight Judgement: + fair judgement Vital Signs (Past 24 Hours) Last Vital Signs Temp 36.4 C L 12/07/21 06:00 Pulse 105 H 12/07/21 06:28 Resp 16 12/07/21 06:00 BP 113/75 12/07/21 06:28 Pulse Ox 98 12/04/21 21:33 Results & Data ([facility]) Current Inpatient Medications Current Inpatient Medications: Current Inpatient Medications Acetaminophen (Acetaminophen 325 Mg Tab) 650 mg PO Q4H PRN PRN Reason: Headache or Minor Fever Stop: 01/04/22 01:17 Al Hydrox/Mg Hydrox/Simethicone (Aluminum/Magnesium Susp 30 Ml Udc) 30 ml PO Q4H PRN PRN Reason: GI Upset Stop: 01/04/22 01:17 Bismuth Subsalicylate (Bismuth Subsalicylate Liqd 236 Ml) 15 ml PO PRN PRN PRN Reason: Loose Stool Stop: 01/04/22 01:17 Bupropion HCl (Bupropion Xl 300 Mg Tabcr) 300 mg PO QAM NIKKI Stop: 01/05/22 08:59 Last Admin: 12/06/21 08:37 Dose: 300 mg Documented by: Hydroxyzine HCl (Hydroxyzine Hcl 25 Mg Tab) 50 mg PO HSZ PRN PRN Reason: Insomnia Stop: 01/04/22 01:17 Hydroxyzine HCl (Hydroxyzine Hcl 25 Mg Tab) 25 mg PO Q4H PRN PRN Reason: Anxiety Stop: 01/04/22 01:17 Hydroxyzine HCl (Hydroxyzine Hcl 25 Mg Tab) 25 mg PO HS NIKKI Stop: 01/04/22 21:59 Last Admin: 12/06/21 21:16 Dose: 25 mg Documented by: Magnesium Hydroxide (Magnesium Hydroxide Susp 30 Ml Udc) 30 ml PO DAILY PRN PRN Reason: Constipation Stop: 01/04/22 01:17 Sodium Chloride (Sodium Chloride 0.65% Na Soln 45 Ml (Saline)) 1 - 2 sprays NA PRN PRN PRN Reason: Nasal Dryness/Congestion Stop: 01/04/22 01:17 Mental Health & Subst Abuse Tx Therapist Name of Therapist: Jon Valladares - Jesús Rizvi Therapist's Date of Therapist Appointment: 12/14/21 Time of Therapist Appointment: 1:30 p.m. Therapy Appointment Comment: [address] [facility], [address] [facility], [place] Washer Blanket Name of Washer Blanket: None Post Discharge Appointments Primary Care Physician Name Of Family Doctor: Gal [facility] Date of Appointment with PCP: 12/14/21 Time of Appointment with PCP: 11:20 a.m. (Please arrive at 11:05 for check in) Provider Appointment Comment: [address] [facility] [place] [id number] Other #1: Name of Aftercare Appointment: [facility] (online) - Rosita Edwards Aftercare Appointment Comment: Follow up according to your preference Contact Information Discharge Discharge Address: [address] [place] [address] [id number]
[2021-12-07] MEDS: buPROPion XL 300 MG TABCR PO SCH (09:55)
[2021-12-07] MEDS: hydrOXYzine HCl 25 MG TAB PO SCH (21:18)
--- NOTE | 2021-12-08 08:55 | Psychiatric Progress Note ---
Date of Service December 08, 2021 Impression / Recommendations Impression The patient is a 26 year old with a history of depression who was admitted for worsening depression, anxiety and persistent and intensifying SI. Diagnostically consistent with MDD, recurrent with anxious distress and social anxiety and alcohol use disorder. The patient is deemed unstable and requires psychiatric hospitalization for diagnostic clarification, safety and stabilization, medication management and development of further coping skills. 12/08/21: Brightening of affect, no longer with SI, tolerating Wellbutrin titration well. Still with some insomnia, possibly due to Wellbutrin titration, discussed options and he would like to start trazodone. Reviewed side effects including but not limited to sedation and priapism. Family meeting to be held this afternoon. (1) Major depressive disorder, recurrent episode, severe with anxious distress: (2) Social anxiety disorder: (3) Alcohol use disorder: (4) Suicidal ideation: 12/08/21:Continue with Wellbutrin. Adding trazodone 50mg qhs for insomnia. 12/07/21: Continue with Wellbutrin. 12/06/21: Continue Wellbutrin XL 300mg qd. Family meeting scheduled. 12/05/21: The patient was admitted to the [facility] ([facility] mental health unit) on q15 min checks (behavioral with suicide precautions) for safety. The patient will participate in group, recreational, and milieu therapies and will be offered additional individual and family sessions as clinically appropriate. -hydroxyzine 25mg qhs -Increase Wellbutrin XL 150mg qd to 300mg qd -declines nicotine replacement at this point -may consider further augmentation with fluoxetine for anxiety and depression if needed Inventory Assets Strengths: supportive family, employed, help seeking Needs: outpatient providers, medication adjustment, additional coping skills Risk Factors Assessment Male: Yes : Yes Do You Have Access To A Gun?: Yes (Secured in home, agreeable to have them removed) Health Problems: No Mental Health Diagnoses: Yes Substance Use Disorders: Yes Previous Attempt: No Family History of Suicide: Yes Previous Psychiatric Hospitalization: Yes Hopelessness: Yes Smoker: Yes Protective Factors Assessment Employed: Yes ([employer]) Stable Relationships: Yes Supportive Family: Yes Good Rapport with Provider: Yes Interval History Identifying Information CHAUNCEY CARTER is a 26-year-old man who currently lives in [place] with his parents, has a history of depression, and was admitted on 12/05/21 01:18 on a 201 voluntary commitment for worsening depression and SI. Chief Complaint "The medication is helping a lot". Review of Systems Sleep Information Total Hours of Sleep: 6 Meal Information Percent Meal Consumed - Breakfast: 100 Percent Meal Consumed - Lunch: 75 Percent Meal Consumed - Dinner: 75 Subjective Subjective Patient was seen & assessed and interval progress reviewed with treatment team nursing and social work. Mood has been improving. Has a family meeting today. [place] paperwork completed for his inpatient admission. Continues to attend groups. Had some difficulty again with sleep onset insomnia. Discussed potential side effect from Wellbutrin increase versus change in sleep environment while in the hospital. He would like to continue WEllbutrin as he finds it very helpful for his mood. Interested in trazodone for sleep. Denies SI. Physical Exam Psychiatric Orientation: alert and oriented x 3 Apperance: appropriately dressed and appropriately groomed Eye Contact: good eye contact Motor Behavior: no abnormal motor movements Speech: normal rate/rhythm/volume of speech Affect: + constricted affect Mood: + depressed mood and + anxious mood Thought Process: goal directed thought process Thought Content: reality based without delusions Suicidal Thoughts: denies suicidal thoughts, denies suicidal plan and denies suicidal intent Homicidal Thoughts: denies homicidal thoughts Hallucinations: no auditory hallucinations and no visual hallucinations Cognition: recent memory grossly intact, remote memory grossly intact, attention grossly intact and language grossly intact Estimated Intelligence: consistent with education level Insight: + fair insight Judgement: + fair judgement Vital Signs (Past 24 Hours) Last Vital Signs Temp 36.5 C 12/08/21 06:00 Pulse 94 H 12/08/21 06:24 Resp 16 12/08/21 06:00 BP 107/68 12/08/21 06:24 Pulse Ox 98 12/04/21 21:33 Results & Data ([facility]) Current Inpatient Medications Current Inpatient Medications: Current Inpatient Medications Acetaminophen (Acetaminophen 325 Mg Tab) 650 mg PO Q4H PRN PRN Reason: Headache or Minor Fever Stop: 01/04/22 01:17 Al Hydrox/Mg Hydrox/Simethicone (Aluminum/Magnesium Susp 30 Ml Udc) 30 ml PO Q4H PRN PRN Reason: GI Upset Stop: 01/04/22 01:17 Bismuth Subsalicylate (Bismuth Subsalicylate Liqd 236 Ml) 15 ml PO PRN PRN PRN Reason: Loose Stool Stop: 01/04/22 01:17 Bupropion HCl (Bupropion Xl 300 Mg Tabcr) 300 mg PO QAM NIKKI Stop: 01/05/22 08:59 Last Admin: 12/07/21 09:55 Dose: 300 mg Documented by: Hydroxyzine HCl (Hydroxyzine Hcl 25 Mg Tab) 50 mg PO HSZ PRN PRN Reason: Insomnia Stop: 01/04/22 01:17 Hydroxyzine HCl (Hydroxyzine Hcl 25 Mg Tab) 25 mg PO Q4H PRN PRN Reason: Anxiety Stop: 01/04/22 01:17 Hydroxyzine HCl (Hydroxyzine Hcl 25 Mg Tab) 25 mg PO HS NIKKI Stop: 01/04/22 21:59 Last Admin: 12/07/21 21:18 Dose: 25 mg Documented by: Magnesium Hydroxide (Magnesium Hydroxide Susp 30 Ml Udc) 30 ml PO DAILY PRN PRN Reason: Constipation Stop: 01/04/22 01:17 Sodium Chloride (Sodium Chloride 0.65% Na Soln 45 Ml ([place])) 1 - 2 sprays NA PRN PRN PRN Reason: Nasal Dryness/Congestion Stop: 01/04/22 01:17 Mental Health & Subst Abuse Tx Therapist Name of Therapist: Jon Rizvi Therapist's Date of Therapist Appointment: 12/14/21 Time of Therapist Appointment: 1:30 p.m. Therapy Appointment Comment: [address] [facility], Suite [facility] [place] Repeater Operator Name of Repeater Operator: None Post Discharge Appointments Primary Care Physician Name Of Family Doctor: Gal [facility] Date of Appointment with PCP: 12/14/21 Time of Appointment with PCP: 11:20 a.m. (Please arrive at 11:05 for check in) [facility] [address] [facility] [place] [address] Contact Information Discharge Discharge Address: [address] [place] [id number]
[2021-12-08] MEDS: buPROPion XL 300 MG TABCR PO SCH (09:11)
[2021-12-08] MEDS ORDERED: traZODone HCL 50 MG TAB PO SCH (22:00)
[2021-12-08] MEDS: hydrOXYzine HCl 25 MG TAB PO SCH (22:07)
[2021-12-09] MEDS: buPROPion XL 300 MG TABCR PO SCH (08:26)
--- NOTE | 2021-12-09 13:48 | Discharge Summary ---
Date of Service December 09, 2021 History of Present Illness Duane presents for psychiatric hospitalization for worsening depression and intensifying SI in the context of multiple psychosocial stressors including his father having health issues, recent breakup with girlfriend who he identified as his main support, isolating from family and work has been more intense. Since 12/02/21, his depression has further escalated with persistent SI to the point that he felt unable to remain safe outside of a hospital setting. The SI started while he was intoxicated and then even after "I sobered out" they never left. He had thoughts of crashing his car on Sunday and Sunday but a friend recommended he come to the hospital and he decided "I should give it one more chance". Previously he had a near suicide attempt about one year ago with intent to use a gun to shoot himself but had a friend on the phone who talked him out of it. Currently he has guns in his home though states he lost the rachel to the cabinet where they are secured. Notes that he has a lot of grief that still impacts him every day since May 2020 when he had a romantic breakup after a 2.5 year on and off relationship and subsequent loss of his apartment and "everything I had worked for, all my independence". He endorses depression symptoms which occur episodic with re-emergence in early October 2021. Current symptoms of depression including intense sadness, decrease motivation, low energy, decreased sleep, decreased appetite as well as anxiety and SI. He also endorses lifelong history of social anxiety. Has panic attacks a few times per year. He is currently taking Wellbutrin SR 150mg qAM prescribed by his PCP. He's been "on and off" it for the last 1.5 years. He notes he feels better and stops it but then depression often restarts. Has been on Wellbutrin again since October and it "does help but to an extent". He wishes it was helping more with irritability symptoms. Psychiatric ROS notable for: denial of joaquina, denial of psychosis, hx self-harm via cutting in childhood none in last 10 years, denial of OCD, denial of eating disorder, denial of PTSD. Physical Exam Vital Signs (Past 24 Hours) Last Vital Signs Temp 36.5 C 12/09/21 06:40 Pulse 119 H 12/09/21 06:42 Resp 16 12/09/21 06:40 BP 104/63 12/09/21 06:42 Pulse Ox 98 12/04/21 21:33 See admission H&P and DOD summary. Principal Diagnosis Major Depressive Disorder Psychiatric Data See daily stay summary. In short, patient was engaged with the social/therapeutic milieu of the unit, safety was maintained and the patient was cooperative with care. Medication changes included increase of Wellbutrin XL from 150mg qd to 300mg qd for depression and nicotine use and addition of trazodone 50mg qhs for insomnia and they tolerated this well. In the future if depressive symptoms worsen could consider further titration of Wellbutrin XL to 450mg qd and/or augmentation with fluoxetine. A family session was held and safety plan was completed prior to discharge. During family meeting his parents agreed to secure the guns in the home so that Duane does not have access to these, also discussed recommendation to have these removed from the home and parents identified option and willingness to bring these to a trusted relative if Duane feels unsafe having them in the home or should depression worsen or SI re-emerge. In the days leading up to discharge he consistently denied any SI. He actively and insightfully participated in safety planning and in discussions about ways to seek support and recognizing warning signs and utilizing coping skills. On the day of discharge he stated his mood was "great, I feel like a whole new person compared to when I came in here" and remained future-oriented including spending time with his dad, relaxing, calling friends and getting back to work and engaging in aftercare appointments for therapy and with his primary care physician. Day of Discharge Assessment Today the patient voices readiness for discharge. They note improvement in mood and anxiety. They deny thoughts of harm to self or others. Thoughts are organized and they are clinically improved from admission. There is no evidence of psychosis. They improved in the hospital with support and medication adjustments. They agree to take medications as prescribed and keep follow-up appointments. At the time of the discharge they are deemed to be stable and appropriate for outpatient level of care. They are not deemed to be at imminent risk of harm to self or others. They are aware of emergency and crisis services. Knows to call 911 or go to nearest emergency care center if in a crisis which cannot be handled as an outpatient. Transition of Care Transition Of Care Record: was reviewed with the patient Advance Directives Advance Directives Information Provided: Yes Advance Directives: No Mental Health Advance Directive: No Advance Directives on File: No Living Will: No Power of Pesticide Control Inspector: No Advance Directives Reason:: Declines as Mental Health Visit. Risk Factors Assessment Male: Yes : Yes Do You Have Access To A Gun?: No (parents verified they are no secured and he has no access) Health Problems: No Mental Health Diagnoses: Yes Substance Use Disorders: Yes Previous Attempt: No Family History of Suicide: Yes Previous Psychiatric Hospitalization: Yes Hopelessness: No Smoker: Yes Protective Factors Assessment Employed: Yes ([employer]) Stable Relationships: Yes Supportive Family: Yes Good Rapport with Provider: Yes Discharge Data Lab Results 12/04/21 12/04/21 12/04/21 21:50 21:50 21:50 WBC 13.50 H RBC 5.57 Hgb 17.0 Hct 47.9 MCV 86.0 MCH 30.5 MCHC 35.5 RDW Std Deviation 39.1 RDW Coeff of Mayank 12.3 Plt Count 280 MPV 10.7 H Immature Gran % (Auto) 0.4 Neut % (Auto) 65.7 Lymph % (Auto) 25.8 [place] % (Auto) 6.0 Eos % (Auto) 1.6 Baso % (Auto) 0.5 Neut # (Auto) 8.88 H Lymph # (Auto) 3.48 H [place] # (Auto) 0.81 H Eos # (Auto) 0.21 Baso # (Auto) 0.07 Immature Gran # (Auto) 0.05 H Sodium 139 Potassium 3.5 Chloride 105 Carbon Dioxide 26 Anion Gap 8 BUN 15 Creatinine 1.12 Est Cr Clr Drug Dosing 114.6 Est GFR ( Amer) 105.3 Est GFR (Non-Af Amer) 90.8 BUN/Creatinine Ratio 13.4 Glucose 94 Calcium 9.9 Total Bilirubin 0.5 AST 27 ALT 67 H Alkaline Phosphatase 67 Total Protein 7.7 Albumin 4.9 Globulin 2.8 Albumin/Globulin Ratio 1.8 TSH 3.680 Urine Color Urine Appearance Urine pH Ur Specific [employer] Urine Protein Urine Glucose (UA) Urine Ketones Urine Blood Urine Nitrite Urine Bilirubin Urine Urobilinogen Ur Leukocyte Esterase Salicylates Urine Opiates Screen Ur Methadone, Qual Acetaminophen Urine Barbiturates Ur Phencyclidine (PCP) U Amphetamin/Meth Scrn MDMA (Ecstasy) Screen U Benzodiazepines Scrn Ur Cocaine Metabolite U Marijuana (THC) Screen Ethyl Alcohol mg/dL SARS-CoV-2, RNA, NAAT 12/04/21 12/04/21 12/04/21 21:50 21:50 21:50 WBC RBC Hgb Hct MCV MCH MCHC RDW Std Deviation RDW Coeff of [place] Plt Count MPV Immature Gran % (Auto) Neut % (Auto) Lymph % (Auto) [place] % (Auto) Eos % (Auto) Baso % (Auto) Neut # (Auto) Lymph # (Auto) [place] # (Auto) Eos # (Auto) Baso # (Auto) Immature Gran # (Auto) Sodium Potassium Chloride Carbon Dioxide Anion Gap BUN Creatinine Est Cr Clr Drug Dosing Est GFR ( Amer) Est GFR (Non-Af Amer) BUN/Creatinine Ratio Glucose Calcium Total Bilirubin AST ALT Alkaline Phosphatase Total Protein Albumin Globulin Albumin/Globulin Ratio TSH Urine Color Urine Appearance Urine pH Ur Specific [employer] Urine Protein Urine Glucose (UA) Urine Ketones Urine Blood Urine Nitrite Urine Bilirubin Urine Urobilinogen Ur Leukocyte Esterase Salicylates < 3.0 L Urine Opiates Screen Ur Methadone, Qual Acetaminophen < 3 L Urine Barbiturates Ur Phencyclidine (PCP) U Amphetamin/Meth Scrn MDMA (Ecstasy) Screen U Benzodiazepines Scrn Ur Cocaine Metabolite U Marijuana (THC) Screen Ethyl Alcohol mg/dL < 10.0 SARS-CoV-2, RNA, NAAT NEGATIVE 12/04/21 12/04/21 21:57 21:57 WBC RBC Hgb Hct MCV MCH MCHC RDW Std Deviation RDW Coeff of [employer] Plt Count MPV Immature Gran % (Auto) Neut % (Auto) Lymph % (Auto) [place] % (Auto) Eos % (Auto) Baso % (Auto) Neut # (Auto) Lymph # (Auto) [place] # (Auto) Eos # (Auto) Baso # (Auto) Immature Gran # (Auto) Sodium Potassium Chloride Carbon Dioxide Anion Gap BUN Creatinine Est Cr Clr Drug Dosing Est GFR ( Amer) Est GFR (Non-Af Amer) BUN/Creatinine Ratio Glucose Calcium Total Bilirubin AST ALT Alkaline Phosphatase Total Protein Albumin Globulin Albumin/Globulin Ratio TSH Urine Color Yellow Urine Appearance Clear Urine pH 6.5 Ur Specific [employer] 1.023 Urine Protein Negative Urine Glucose (UA) Negative Urine Ketones Negative Urine Blood Negative Urine Nitrite Negative Urine Bilirubin Negative Urine Urobilinogen Negative Ur Leukocyte Esterase Negative Salicylates Urine Opiates Screen Neg Ur Methadone, Qual Neg Acetaminophen Urine Barbiturates Neg Ur Phencyclidine (PCP) Neg U Amphetamin/Meth Scrn Neg MDMA (Ecstasy) Screen Neg U Benzodiazepines Scrn Neg Ur Cocaine Metabolite Neg U Marijuana (THC) Screen Neg Ethyl Alcohol mg/dL SARS-CoV-2, RNA, NAAT Hospital Course (1) Major depressive disorder, recurrent episode, severe with anxious distress: (2) Social anxiety disorder: (3) Alcohol use disorder: (4) Suicidal ideation: 12/09/21: Slept really well with trazodone. Continue trazodone, Wellbutrin and hydroxyzine. 12/08/21:Continue with Wellbutrin. Adding trazodone 50mg qhs for insomnia. 12/07/21: Continue with Wellbutrin. 12/06/21: Continue Wellbutrin XL 300mg qd. Family meeting scheduled. 12/05/21: The patient was admitted to the [facility] ([facility] mental health unit) on q15 min checks (behavioral with suicide precautions) for safety. The patient will participate in group, recreational, and milieu therapies and will be offered additional individual and family sessions as clinically appropriate. -hydroxyzine 25mg qhs -Increase Wellbutrin XL 150mg qd to 300mg qd -declines nicotine replacement at this point -may consider further augmentation with fluoxetine for anxiety and depression if needed Mental Health & Subst Abuse Tx Therapist Name of Therapist: Jon Valladares - Jesús Rizvi Therapist's Date of Therapist Appointment: 12/14/21 Time of Therapist Appointment: 1:30 p.m. Therapy Appointment Comment: [address] [facility], [address], [place] Therapist Release of Information: Obtained, Reviewed and Signed Director Operations Broadcast Name of Director Operations Broadcast: None Post Discharge Appointments Primary Care Physician Name Of Family Doctor: Gal Adair [facility] Date of Appointment with PCP: 12/14/21 Time of Appointment with PCP: 11:20 a.m. (Please arrive at 11:05 for check in) Provider Appointment Comment: [address] [place] [facility] [place] [address] Primary Care Release of Information: Obtained, Reviewed and Signed Contact Information Discharge Discharge Address: [address] [place] [id number] Discharge Plan Discharge Items Patient Disposition: Home - Self-Care Reason For Visit: MHE Discharge Diagnosis: Major Depressive Disorder Activity: Resume your previous activity Non-emergency contact: Primary Care Provider and Therapist Call non-emergency contact if: you have any medication questions and your symptoms worsen Follow-up/Referrals: Arnulfo Adair MD [Primary Care Provider] - Diet: Regular Addtl Attending Provider Instructions: SPECIAL CARE INSTRUCTIONS: 1. Follow through with your scheduled aftercare appointments. If unable to keep an appointment, please call to reschedule. 2. Take your medication only as prescribed. Medication should not be changed or stopped without the approval of your doctor. In the event of worsening symptoms or concerns about side effects, contact your doctor immediately. 3. Utilize new healthy coping skills, anger management skills, and stress management skills learned during your hospitalization. Journal feelings and process them with a support person. Identify stressors or situations that may result in relapse, deterioration or inappropriate behaviors and develop a plan to deal with those issues. 4. If your coping skills are ineffective and you are in crisis, contact your outpatient providers for direction. If unable to reach your providers, please call the [facility] CRISIS LINE AT , go to the [facility] walk-in center at [address] [place] [address] [facility], or go to the closest Emergency Room. 5. Avoid alcohol and un-prescribed drugs. 6. You have been provided with the Mental Health Advance Directives Pamphlet for your review. 7. Your condition is stable for discharge to outpatient level of care, but recovery is an ongoing process. Ifthoughts to harm yourself or others return, follow the safety plan developed during your stay. Planning for a safe return home includes securing weapons. Our treatment team recommends weaponsbe removed from the home until your outpatient provider reassesses your progress. In rare cases where the items themselvescannot be removed, guns and ammunitionshould be secured separatelyand keys stored by a reliable personoutside of the home. If you were admitted on an involuntary commitment, the police or other legal authorities may be involved in this process. AFTERCARE APPOINTMENTS: * Please call your insurance company prior to your scheduled appointment to confirm your aftercare providers are covered. Take your insurance information to your appointments. WHO TO CALL AND WHEN: Medical Emergencies: For questions or emergencies related to your hospital stay, please contact the Inpatient Behavioral Health Unit at [phone]. A crisis clinician is on-call 23/04 for the Behavioral Health Unit for emergencies At any time you feel your situation is an emergency, you may also call 911 immediately. Pending Studies at Discharge: No Stand-Alone Forms: My [facility], Smoking Cessation Medications and DC Order Prescriptions: New trazodone 50 mg Tablet 50 mg PO HS 30 Days Qty: 30 RF: 0 hydroxyzine HCl 25 mg Tablet 25 mg PO HS PRN (Reason: anxiety/insomnia) 30 Days Qty: 30 RF: 0 bupropion HCl 300 mg Tablet Extended Release 24 Hr 300 mg PO QAM 30 Days Qty: 30 RF: 0 Discharge Orders: Discharge Order (Routine); Ordered 12/09/21 Ordered By: Maryjane Henning/Other Patient Handouts: Journaling for Mental Health, Counseling for Depression, Depression: Tips to Help Yourself Admission Data Admit Date/Time: 12/05/21 01:18 Attending Provider: Maryjane Vallejo Admit Provider: Maryjane Vallejo Primary Care Provider: Arnulfo Adair Other Interventions: PSY Interdisciplinary Discharge Planning Last Done: 12/09/21 13:15 Coding Level of Care Code 41789 D/C day mgmt > 30 min Diagnoses Major depressive disorder, recurrent episode, severe with anxious distress F33.2 Social anxiety disorder F40.10 Alcohol use disorder Suicidal ideation R45.851 Time Spent (min) 40
--- NOTE | 2021-12-14 12:57 | Coding Query ---
CODING QUERY To promote full compliance with coding requirements relating to patient care, provider participation is requested in all cases of deal architect uncertainty. Please assist us with the question(s) below: Coding Question(s): Please specify below regarding Alcohol use disorder. (X ) mild ( ) moderate or severe ( ) in remission ( ) other: Please Specify Physician's Response(s): Thank you [place] [employer] Principal Diagnosis: "that condition established after study, to be chiefly responsible for occasioning the admission of the patient to the hospital for care." Co-Existing Principal Diagnosis: "when two or more diagnoses equally meet the criteria for principal diagnosis as determined by the circumstances of admission, diagnostic work up, and/or therapy provided, and the Alphabetic Index, Tabular List, or another coding guideline does not provide sequencing direction, any one of the diagnoses may be sequenced first." "When the physician has documented what appears to be a current diagnosis in the body of the record, but has not included the diagnosis in the final diagnostic statement, the physician should be asked whether the diagnosis should be added." (Source Coding [facility] 2 QTR90. p3-4) [place]
== END 2021-12-09 14:50 | disposition home or self-care (01) | DRG 885 ==
LOC: ED 21:33 → 3S 12-05 01:18